=== PATIENT | female | born 1990 | race Caucasian/White ===

== ENCOUNTER 2016-08-07 16:46 | Emergency (ER) | payer MEDICAID ==
[~2016-08-07] VITALS: Ht 175.3 cm; Wt 83.6 kg
[2016-08-07 16:48] VITALS: BP 130/74
[2016-08-07] MEDS ORDERED: HYDROcodone/APAP 5/325 TABLET ONE (17:39)
[2016-08-07] MEDS ORDERED: METHOCARBAMOL 750 MG TABLET ONE (17:39)
[2016-08-07] MEDS ORDERED: IBUPROFEN 200 MG TABLET ONE (17:39)
[2016-08-07] MEDS ORDERED: METHOCARBAMOL 750 MG TABLET PO ONE (18:00)
[2016-08-07] MEDS ORDERED: HYDROcodone/APAP 5/325 TABLET PO ONE (18:00)
[2016-08-07] MEDS ORDERED: IBUPROFEN 200 MG TABLET PO ONE (18:00)
== END 2016-08-07 18:34 | disposition home or self-care (01) ==
LOC: ED 18:28
DX: S39.012A Strain of muscle, fascia and tendon of lower back, initial encounter (principal); M54.41 Lumbago with sciatica, right side; M46.1 Sacroiliitis, not elsewhere classified; X58.XXXA Exposure to other specified factors, initial encounter; Y93.89 Activity, other specified; Y99.8 Other external cause status; Y92.89 Other specified places as the place of occurrence of the external cause
CPT/HCPCS: 72110

== ENCOUNTER 2017-04-02 10:49 | Emergency (ER) | payer MEDICAID ==
[~2017-04-02] VITALS: Ht 172.7 cm; Wt 79.5 kg
[2017-04-02 10:57] VITALS: BP 123/82
[2017-04-02] MEDS ORDERED: HYDROcodone/APAP 5/325 TABLET PO ONE (11:30)
[2017-04-02] MEDS ORDERED: HYDROcodone/APAP 5/325 TABLET ONE (11:31)
== END 2017-04-02 12:37 | disposition home or self-care (01) ==
LOC: ED 11:46
DX: W20.8XXA Other cause of strike by thrown, projected or falling object, initial encounter (principal); S90.811A Abrasion, right foot, initial encounter; Y93.89 Activity, other specified; Y99.8 Other external cause status; Y92.099 Unspecified place in other non-institutional residence as the place of occurrence of the external cause
CPT/HCPCS: 99284